=== PATIENT | male | born 1985 | race Caucasian/White ===

== ENCOUNTER 2021-10-16 15:01 | Emergency (ER) | payer OTHER ==
[~2021-10-16] VITALS: Ht 177.8 cm; Wt 65.8 kg
[2021-10-16 15:08] VITALS: BP 145/86
[2021-10-16] MEDS ORDERED: SINGULAIR 10 MG10 MG PO (15:12)
[2021-10-16] MEDS ORDERED: VIAGRA50 MG PO (15:12)
[2021-10-16] MEDS ORDERED: ADVAIR 250-501 EACH INH (15:12)
[2021-10-16] MEDS ORDERED: PROAIR HFA8.5 GM INH (15:12)
== END 2021-10-16 15:45 | disposition left against medical advice (07) ==
LOC: M.ERS 15:01
DX: M25.512 Pain in left shoulder (principal); Z53.21 Procedure and treatment not carried out due to patient leaving prior to being seen by health care provider